=== PATIENT | female | born 1945 | race Caucasian/White ===

== ENCOUNTER 2016-08-17 10:35 | Outpatient (CLI) | payer MEDICARE ==
--- NOTE | 2016-08-17 22:10 | RAD ---
RIGHT HIP TWO VIEWS 08/17/2016 FINDINGS: No fracture, dislocation, or acute bony change is seen. The joint space is minimally narrow, but th e articular surfaces are smooth. There are no large osteophytes. IMPRESSION: No acute findings. POS: HOME
== END 2016-08-17 10:36 | disposition home or self-care (01) ==
LOC: BURRAD 10:35
PROVIDERS: ATTEND Family Medicine
DX: M25.551 Pain in right hip (principal)

== ENCOUNTER 2018-10-12 07:03 | Outpatient (CLI) | payer MEDICARE ==
[2018-10-12] MEDS ORDERED: Iopamidol 370 76% 125 ML VIAL FS ONE (12:08)
--- NOTE | 2018-10-12 13:00 | CT ---
CT ABDOMEN AND PELVIS WITH AND WITHOUT CONTRAST AND MULTIPLANAR RECONSTRUCTIONS: 10/12/2018 COMPARISON: Prior CT dated 10/12/2008. TECHNIQUE: The exam was done initially without IV contrast due to the history of kidney stones. A subsequent sc an with IV contrast was done, as there is also a history of renal parenchymal disease. Axial slices were initially acquired and then various reconstructions in different planes were obtained. FINDINGS: The lung bases are clear. There are several small, cystic appearing lesions in the liver, as on the prior study. The larger one is in the lower part of the right lobe, as before, and today it measures about 1.1 cm in size. There has been a prior cholecystectomy. The spleen, pancreas, adrenal glands , and abdominal aorta are unremarkable. There is a nonobstructing stone in the left renal pelvis. This was present on the older scan, but it has increased in size and now measures 1.1 cm in diameter. I do not see any other renal calculi. A tiny, subcentimeter cyst is seen in the middle third of the left kidney. No slid renal masses are d etected. No ureteral calculi or signs of obstruction are noted. A rounded calcification seen on top of the psoas major muscle, on scan 54, is a phlebolith and is not in the left ureter. This was pres ent previously. The bowel shows no distention. I would make a comment that the wall of the transverse colon is slight ly borderline in thickness, but it is not well distended either. I would chemical cell changer the finding as equivo sheryl for colitis at the moment; however, the finding should be kept in mind, and this would be an area of concern if abdominal pain were to continue. There is no free air or free fluid. CT of the pelvis shows no pelvic masses, fluid collections, or inflammatory changes. Calcifications around the urinary bladder are phleboliths and not in the urinary tract. IMPRESSION: 1. Nonobstructing calculus in the left renal pelvis, now 1.1 cm in diameter, larger than previously. No other stones or renal pathology of concern were seen. 2. Small hepatic cysts, as before. 3. Equivocal prominence of the folds and stewart of the transverse colon, particularly to the right of midline. As the colon is somewhat collapsed in this location, I cannot absolutely confirm the possi bility of colitis here. All other sections of the colon appear normal. This should be kept in mind, depending upon the progress of the patient's symptoms. POS: HOME
== END 2018-10-12 07:04 | disposition home or self-care (01) ==
LOC: BURCT 07:03
PROVIDERS: ATTEND Family Medicine
DX: R10.9 Unspecified abdominal pain (principal); N20.0 Calculus of kidney; K76.89 Other specified diseases of liver
CPT/HCPCS: 74178; Q9967

== ENCOUNTER 2020-02-17 08:01 | Outpatient (CLI) | payer MEDICARE ==
[2020-02-17] MEDS ORDERED: Iopamidol 370 76% 100 ML VIAL ONE (11:44)
--- NOTE | 2020-02-17 19:24 | CT ---
CT ABDOMEN AND PELVIS WITH AND WITHOUT CONTRAST AND MULTIPLANAR RECONSTRUCTIONS: Date: 02-17-[address] of the abdomen and pelvis was done pre and post IV contrast due to a history of renal stone s. The patient presents with abdominal pain. Comparison: 10-12-18 FINDINGS: The lung bases are clear. No infiltrate or effusion was seen. The liver and spleen are both normal in size. Several cystic appearing areas in the right lobe of the liver were present before and have not changed significantly in the interval. The largest is about 1.3 cm in size. There has been a prior c holecystectomy. The pancreas and adrenal glands appear normal. As before, there is a large calculus i n the left renal pelvis. It is not causing obstruction. Its measurement today are about 10-11 mm in s ize, making it slightly larger than before. No ureteral calculi were seen. No solid renal masses were indicated. A sub-centimeter cyst is suggested in the upper pole of the left kidney, which is not a n ew finding. The aorta is normal in caliber throughout. The bowel shows no distention or inflammatory change aroun d it. There is one area in the mid descending colon that is slightly narrower than the bowel just bef ore and after it. I do not see evidence of this on the prior study. This easily could be nothing more than a contraction of bowel due to peristalsis, but if the patient has not had endoscopy in recent t imes, it might be considered to be sure that there is no more concerning lesion here. No free air or free fluid was present. CT of the pelvis shows no pelvic masses, fluid collections, or inflammatory changes. There is no sign of diverticulitis. No adenopathy of concern was noted. 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 This causes a little bit of lateral recess narrowing at the L3-4 level, particula rly on the right side. IMPRESSION: 1. No large changes since the 2019 scan. 2. Area of slight narrowing in the mid descending colon. Peristalsis versus the potential for pa thology here causing the narrowing. Consider follow up if a colonoscopy has not been done recently. 3. Several small hepatic cysts, stable. 4. 10-11 mm nonobstructing calculus in the left kidney. Its size is not that much greater than b efore, but the overall volume of calcium seems slightly greater. POS: HOME
== END 2020-02-17 08:02 | disposition home or self-care (01) ==
LOC: BURCT 08:01
PROVIDERS: ATTEND Family Medicine
DX: R10.9 Unspecified abdominal pain (principal); K76.89 Other specified diseases of liver; N20.0 Calculus of kidney; K56.609 Unspecified intestinal obstruction, unspecified as to partial versus complete obstruction
CPT/HCPCS: 74178; Q9967

== ENCOUNTER 2020-10-12 14:12 | Outpatient (CLI) | payer MEDICARE | END 2020-10-12 14:13 | disposition home or self-care (01) | LOC: BURCT 14:12 | PROVIDERS: ATTEND Family Medicine | DX: N20.0 Calculus of kidney (principal); N28.89 Other specified disorders of kidney and ureter; K76.9 Liver disease, unspecified | CPT/HCPCS: 74176 ==